=== PATIENT | female | born 1935 | race African-American/Black ===

== ENCOUNTER 2019-06-08 12:28 | Inpatient (IN) | payer OTHER ==
[~2019-06-08] VITALS: Ht 157.5 cm; Wt 72.6 kg
[2019-06-08 12:32] VITALS: Ht 157.5 cm; Wt 72.6 kg
--- NOTE | 2019-06-08 12:40 | NUR ---
PATIENT AAOX3 BIB [facility] WITH C/O ABD PAIN WITH NAUSEA AND RIGHT UPPER FLANK PAIN,. PT STS SHE HASN'T HAD A BM X 4 DAYS. PT HX OF EARLY ONSET DEMENTIA, A FIB, HTN. BREATHING E/U, SKIN WARM, DRY AND INTACT. NO OTHER SS OF DISTRESS NOTED. PT PLACED ON ALL MONITORS FOR FURTHER OBSERVATION. WILL CONTINUE TO MONITOR.
[2019-06-08 13:36] LABS: CALCIUM 8.4 mg/dL (8.5-10.1); CARBON DIOXIDE 30.6 mmol/L (21-32); CHLORIDE SERUM 108 mmol/L (98-107); GLUCOSE SERUM 130 mg/dL (74-106); POTASSIUM SERUM 4.2 mmol/L (3.5-5.1); SODIUM SERUM 145 mmol/L (136-145)
[2019-06-08 13:40] LABS: ALKALINE PHOSPHATASE 110 U/L (46-116); ALT/SGPT 11 U/L (14-59); AST/SGOT 15 U/L (15-37); BILIRUBIN TOTAL 0.26 mg/dL (0.20-1.00); LIPASE 49 IU/L (73-393); TOTAL PROTEIN, SERUM 7.1 g/dL (6.4-8.2)
[2019-06-08 13:44] LABS: BASOPHIL % 0.1 % (0-2); PLATELET COUNT 353 x10^3mcL (130-400)
[2019-06-08 13:46] LABS: RED CELL DISTRIBUTION WIDTH 14.9 % (11.5-14.5)
--- NOTE | 2019-06-08 13:52 | NUR ---
PATIENT TAKEN FOR CT SCAN. VSS- NAD NOTED. WILL CONTINUE TO MONITOR UPON RETURN.
--- NOTE | 2019-06-08 14:00 | NUR ---
PATIENT BACK FROM CT-- NAD NOTED. WILL CONTINUE TO MONITOR.
[2019-06-08 14:01] LABS: microscopic required? YES; urine erythrocyte NEGATIVE (NEGATIVE)
--- NOTE | 2019-06-08 14:18 | NUR ---
ASSISTED PATIENT TO BATHROOM. GAIT SLIGHTLY UNSTEADY. PT STS SHE NORMALLY USES A CANE AT HOME BUT [facility] DIDNT BRING IT. PT BACK IN BED AND CONNECTED TO MONITORS FOR CONTINUED OBSERVATIONS.
--- NOTE | 2019-06-08 15:09 | NUR ---
MEDICATED PER MD ORDERS
[2019-06-08] MEDS ORDERED: TYLENOL WITH CO1 TA2 PO (16:52)
[2019-06-08] MEDS ORDERED: PROCARDIA XL90 MG PO (16:53)
--- NOTE | 2019-06-08 17:08 | NUR ---
PROVIDED REPORT TO LILA NASH FOR CONTINUED CARE OF PATIENT. OK'D BY MD TO SEND PATIENT UP TO THE FLOOR.
[2019-06-08 17:26] VITALS: BP 154/86
--- NOTE | 2019-06-08 17:31 | NUR ---
RECEIVED PT FROM ED VIA ABHISHEK. ORIENTED PT TO ROOM AND SURROUNDINGS. IV NOTED TO LAC PATENT AND INTACT. INSTRUCTED PT ON THE USE OF CALL LIGHT FOR ASSISTANCE. ENDORSED PT TO PRIMARY NURSE SAAD
--- NOTE | 2019-06-08 18:06 | NUR ---
PT REFUSED DULCOLAX SUPPOSITORY, PER DR BRANCH GIVE LACTOLOSE PO X1 NOW, COMPLAINING OF 7/10 ABD PAIN, NORCO PO GIVEN, ASSISTED PT WITH MEAL TRAY SETUP, CALL LIGHT WITHIN REACH.
--- NOTE | 2019-06-08 18:19 | NUR ---
IV IN LAC SWOLLEN AND PT COMPLAINING OF PAIN AT IV SITE, IV IN LAC REMOVED WITH CATHETER INTACT, GAUZE AND TAPE PLACED ON SITE. SURU RN TO PLACE NEW IV.
--- NOTE | 2019-06-08 19:23 | NUR ---
ENDORSED CARE TO MELITA AND RIDDHI SHARP.
--- NOTE | 2019-06-08 19:30 | NUR ---
RECEIVED PT FROM DAY SHIFT RN. PT AAOX4 DENIES JACKSON/DIZZINESS. BREATHING EVEN AND UNLABORED ON RA WITH NO SOB NOTED. MED SURG PT DENIES CHEST PAIN/PRESSURE. IV LFA. PT ABD SOFT/DISTENDED. ACTIVE BOWEL SOUNDS. DENIES ABD PAIN/N/V. GENERALIZED WEAKNESS. NO SIGNS OF DISTRESS. CALL BUTTON WITHIN LEYDA. SAFETY PRCAUTIONS IN PLACE. WILL CONTINUE TO MONITOR.
[2019-06-08 20:59] VITALS: BP 132/69
--- NOTE | 2019-06-08 21:00 | NUR ---
PT REPORTED HAVING ABD PAIN 10/10. MEDICATED PER EMAR. CALL BUTTON WITHIN REACH. SAFETY PRECAUTIONS IN PLACE. WILL MONITOR.
--- NOTE | 2019-06-08 22:08 | NUR ---
PT REPORTED HAVING TROUBLE SLEEPING. MEDICATED PER EMAR. CALL BUTTON WITHIN REACH. SAFETY PRECAUTIONS IN PLACE. WILL CONTINUE TO MONITOR.
--- NOTE | 2019-06-09 01:21 | NUR ---
PT RESTING. BREATHING EVEN AND UNLABORED ON RA WITH NO SOB NOTED. CALL BUTTON WITHIN REACH. SAFETY PRECAUTIONS IN PLACE. WILL CONTINUE TO MONITOR.
--- NOTE | 2019-06-09 03:00 | NUR ---
ROUNDS MADE. PT RESTING. BREATHING EVEN AND UNLABORED NO SIGNS OF DISTRESS. CALL BUTTON WITHIN REACH. SAFETY PRECAUTIONS IN PLACE. WILL CONTINUE TO MONITOR.
--- NOTE | 2019-06-09 05:04 | NUR ---
PT SLEPT MOST OF THE NIGHT WITH NO SIGNS OF DISTRESS. BRETHING EVEN AND UNLABORED ON RA WITH NO SOB NOTED. IV PATENT, SL. PT HAS ONE LOOSE STOOL. PT REPORTED HAVING ABD PAIN X1 MEDICATED PER EMAR WITH SOME RELIEF. PT USES BSC WITH ASSIST. MEDICATED PER EMAR. CALL BUTTON WITHIN REACH. SAFETY PRECAUTIONS IN PLACE. WILL CONTINUE TO MONITOR AND ENDORSE CARE TO DAY SHIFT RN.
[2019-06-09 06:04] VITALS: BP 136/61
[2019-06-09 06:32] LABS: BASOPHIL % 0.3 % (0-2); PLATELET COUNT 324 x10^3mcL (130-400)
[2019-06-09 06:45] LABS: CARBON DIOXIDE 30.6 mmol/L (21-32); CHLORIDE SERUM 109 mmol/L (98-107); GLUCOSE SERUM 99 mg/dL (74-106); POTASSIUM SERUM 4.2 mmol/L (3.5-5.1); SODIUM SERUM 144 mmol/L (136-145)
--- NOTE | 2019-06-09 07:29 | NUR ---
PT AWAKE DENIES PAIN. NO SIGNS OF DISTRESS. CALL BUTTON WITHIN REACH. SAFETY PRECAUTIONS IN PLACE. ENDORSED CARE TO DAY SHIFT RN, ALL QUESTIONS ADDRESSED.
[2019-06-09 07:33] LABS: RED CELL DISTRIBUTION WIDTH 15.5 % (11.5-14.5)
--- NOTE | 2019-06-09 07:44 | NUR ---
HANDOFF REPORT RECEIVED. PATIENT AWAKE AND NOT IN ANY DISTRESS. CALL [place] WITHIN REACH.
[2019-06-09 08:56] VITALS: BP 106/39
--- NOTE | 2019-06-09 09:58 | NUR ---
VOMITTED 200CC BROWNISH GRAYISH IN COLOR. ZOFRAN 4MG IVP AND ORAL CARE DONE. IN BED NOW RESTING. CALL [place] WITHIN REACH.
--- NOTE | 2019-06-09 11:08 | NUR ---
NO APPETITE FOR BREAKFAST. RESTING AT THIS TIME.
--- NOTE | 2019-06-09 11:55 | NUR ---
RESTING. NO COMPLAINTS. CALL [place] WITHIN REACH.
[2019-06-09 17:11] LABS: IRON 35 ug/dL (50-170)
[2019-06-09 17:13] LABS: TOTAL IRON BINDING CAPACITY 149 ug/dL (250-450)
--- NOTE | 2019-06-09 17:28 | NUR ---
IN BED. NOT IN ANY DISTRESS. SEEN BY MD SYED AN HOUR AGO.
[2019-06-09 17:40] VITALS: BP 168/52
--- NOTE | 2019-06-09 18:03 | NUR ---
PLEASED TO SEE DR SYED THIS PM. NO COMPLAINTS AT THIS TIME. EXPLAINED TO PATIENT SHE NEEDS TO TAKE ALL HER LAXATIVES ORDERED. STATED "OKAY". CALL [place] WITHIN REACH.
--- NOTE | 2019-06-09 19:18 | NUR ---
HANDOFF REPORT TO LILA GAFFNEY DONE. PATIENT RESTING IN BED WITH SCD IN USE. NO COMPLAINTS.CALL [place] WITHIN REACH.
--- NOTE | 2019-06-09 20:18 | NUR ---
PT RECIEVED AAO REG RESP NO SOB ABDO IS SOFT WITH ACTVIE BOWEL SOUNDS,KEPT CLEAN AND DRY TO TOUCH,IV INFUSING WELL WITH THE SITE PATENT AND INTACT,BED IN THE LOW POSITION AND LOCKED,MADE COMFORTABLE IN BED AND WILL CONTINUE TO MONITOR.
[2019-06-09 21:24] VITALS: BP 148/57
--- NOTE | 2019-06-10 01:08 | NUR ---
PT SLEEPING A THIS TIME,WILL CONTINUE TO MONITOR.
[2019-06-10 05:34] VITALS: BP 136/49
[2019-06-10 06:21] LABS: BASOPHIL % 0.2 % (0-2); PLATELET COUNT 335 x10^3mcL (130-400)
[2019-06-10 06:30] LABS: CALCIUM 8.2 mg/dL (8.5-10.1); CARBON DIOXIDE 29.2 mmol/L (21-32); CHLORIDE SERUM 107 mmol/L (98-107); CREATININE SERUM 0.9 mg/dL (0.6-1.0); GLUCOSE SERUM 106 mg/dL (74-106); POTASSIUM SERUM 4.2 mmol/L (3.5-5.1); SODIUM SERUM 143 mmol/L (136-145)
--- NOTE | 2019-06-10 06:38 | NUR ---
PT HAD A RESTING NIGHT NO CHANGE AT THIS TIME AND WILL CONTINUE TO MONITOR.
[2019-06-10 06:48] LABS: RED CELL DISTRIBUTION WIDTH 15.1 % (11.5-14.5)
--- NOTE | 2019-06-10 08:00 | NUR ---
SHIFT ASSESSMENT DONE. PATIENT A/A/OX4; CLEAR SPEECH. NO RESP DISTRESS ON RA. DENIED CHEST PAIN. STATED HAS BM X2 LAST SIFT. DENIED ABD PAIN NOW. ABD OBESE/ SOFT. FINISHED 60% OF FULL LIQUID DIET BREAKFAST. TOLERATED. NO N/V. IVHL'D TO LFA. BSC IN PLACE. CALL LIGHT IN REACH.
[2019-06-10 09:44] VITALS: BP 139/53
--- NOTE | 2019-06-10 10:00 | NUR ---
DR. BRANCH AND DR. SYED SAW PATIENT. ORDER OF DISCHARGE WRITTEN.
--- NOTE | 2019-06-10 11:02 | NUR ---
[facility] REPORTED PATIENT'S BLOOD CULTURE -- GRAM POSITIVE COCCI (+). DR. BRANCH CALLED AND MESSAGE LEFT.
--- NOTE | 2019-06-10 12:17 | NUR ---
DR Lilly BRANCH MADE AWARE OF BLOOD CULTURE RESULT. PER DR BRANCH OK TO AR PATIENT HOME TODAY. NEW PRESCRIPTION GIVEN. ATTENDING NURSE FLETCHER AWARE.
[2019-06-10 12:28] VITALS: BP 139/53
--- NOTE | 2019-06-10 13:31 | NUR ---
PATIENT AFEBRILE. DENIED ABD PAIN AND DISCOMFORT. TOLERATED FULL LIQUID LUNCH. D/C TO HOME PER ORDER. INSTRUCTION GIVEN. IV D/C'D. OVER NEEDLE CATH INTACT. CONDITION STABLE. WAITING FOR FAMILY MEMBER CAME TO [employer] CON[employer] HELPER.
== END 2019-06-10 14:11 | disposition home or self-care (01) | DRG 389 ==
LOC: ED 12:28 → MU 16:34
PROVIDERS: Emergency Medicine; Internal Medicine Gastroenterology; ADMIT Internal Medicine
DX: K56.41 Fecal impaction (principal); N39.0 Urinary tract infection, site not specified; K57.30 Diverticulosis of large intestine without perforation or abscess without bleeding; R73.9 Hyperglycemia, unspecified; I70.0 Atherosclerosis of aorta; I10 Essential (primary) hypertension; M81.0 Age-related osteoporosis without current pathological fracture; M54.9 Dorsalgia, unspecified; G89.29 Other chronic pain; K86.89 Other specified diseases of pancreas; N26.1 Atrophy of kidney (terminal); Z68.32 Body mass index [BMI] 32.0-32.9, adult
CPT/HCPCS: G0378; J0696; J1956; J2270; J7040; J7060